=== PATIENT | male | born 1995 | race Hispanic/Latino ===

== ENCOUNTER 2018-04-12 13:16 | Outpatient (CLI) | payer BC ==
--- NOTE | 2018-04-12 15:03 | RAD ---
LEFT SHOULDER THREE VIEWS: HISTORY: Left shoulder pain. FINDINGS: There are postop changes and metallic hardware in the left proximal humerus. No acute fracture, disl ocation, or bony destruction is identified. POS: [facility]
== END 2018-04-12 13:17 | disposition home or self-care (01) ==
LOC: BICRAD 13:16
PROVIDERS: ATTEND Family Medicine
DX: M25.512 Pain in left shoulder (principal); Z98.890 Other specified postprocedural states

== ENCOUNTER 2019-04-08 17:36 | Emergency (ER) | payer BC ==
--- NOTE | 2019-04-08 19:25 | RAD ---
TWO VIEWS OF THE CHEST: 04/08/19 COMPARISON: None. HISTORY: Cough. FINDINGS: Two views of the chest show normal sized cardiomediastinal silhouette. There is no evidence of consol idation, mass, or pleural effusion. The bones are unremarkable. IMPRESSION: No evidence of acute cardiopulmonary disease. POS: C
== END 2019-04-08 20:53 | disposition home or self-care (01) ==
LOC: ERS 17:36
DX: J06.9 Acute upper respiratory infection, unspecified (principal); F32.9 Major depressive disorder, single episode, unspecified
CPT/HCPCS: 71046; 87804